=== PATIENT | female | born 2000 | race African-American/Black ===

== ENCOUNTER 2024-09-15 17:42 | Emergency (ER) | payer OTHER, SELFPAY ==
[2024-09-15 17:51] VITALS: BP 130/89
[2024-09-15 18:21] LABS: % Basophils 1.7 % (0-2); % Eosinophils 1.6 % (0-6); % Immature Granulocytes 0.3 % (0-0.5); % Lymphocytes 24.5 % (20.5-51.1); % Monocytes 5.6 % (1.7-9.3); % Neutrophils 66.3 % (42.2-75.2); Absolute Basophils 0.2 10^3/uL (0-0.2); Absolute Eosinophils 0.2 10^3/uL (0-0.7); Absolute Lymphocytes 2.7 10^3/uL (1.2-3.4); Absolute Monocytes 0.6 10^3/uL (0.1-0.6); Absolute Neutrophils 7.2 10^3/uL (1.4-6.5); Hemoglobin 10.2 g/dL (12.0-16.0); INR 1.05; Mean Corp Hgb Conc. 31.9 g/dL (33.0-37.0); Mean Corpuscular Hgb 24.6 pg (27.0-31.0); Mean Corpuscular Volume 77.3 fL (81.0-99.0); Nucleated Red Blood Cells % 0 %; Red Blood Cell Count 4.14 10^6/uL (4.20-5.40); Red Cell Dist. Width 13.7 % (11.5-14.5); White Blood Cell Count 10.9 10^3/uL (4.8-10.8)
[2024-09-15 18:22] LABS: APTT 30.1 Sec (23.4-35.0)
[2024-09-15 18:23] LABS: HCG, Serum Qualitative Screen Negative
[2024-09-15 18:27] LABS: ALT (SGPT) 13 U/L (0-35); AST (SGOT) 17 U/L (14-36); Albumin 4.8 g/dl (3.5-5.0); Alkaline Phosphatase 60 U/L (38-126); Blood Urea Nitrogen 19 mg/dl (7-17); Calcium 8.6 mg/dl (8.4-10.2); Carbon Dioxide 24 mmol/L (22-30); Chloride 105 mmol/L (98-107); Glucose 106 mg/dl (70-99); Potassium 3.8 mmol/L (3.5-5.1); Sodium 139 mmol/L (135-145); Total Bilirubin 0.5 mg/dl (0.2-1.3); Total Protein 7.6 g/dl (6.3-8.2); eGFR > 60.00
[2024-09-15 18:37] LABS: Troponin I < 0.012 ng/ml
[2024-09-15 18:50] LABS: Platelet Count 22 10^3/uL (130-400)
[2024-09-15 20:00] VITALS: BP 116/70
[2024-09-15 20:22] VITALS: BP 116/70
[2024-09-15 21:00] VITALS: BP 107/67
--- NOTE | 2024-09-15 21:50 | ED.GENMED ---
History of Present Illness
General
Chief Complaint: Chest Pain
Source: patient
Exam Limitations: none
Time Seen by Provider: 09/15/24 21:17
Nursing documentation reviewed up to this point in time: agreed with
History of Present Illness
History of Present Illness:
24-year-old female presents emergency room due to left-sided chest pain intermittent. She has some pain when she takes a deep breath.
Past History
Past History
ED Past Medical History: Other (ITP, thalassemia)
ED Past Surgical History: None
Social History
Tobacco: Non-smoker
Alcohol: None
Drug: None
Personal:
Living: with family
Review of Systems
Review of Systems
Allergies reviewed?: Yes
All Other Systems: Not applicable
Constitutional: Reports no symptoms
EENT: Reports no symptoms
Respiratory: Reports trouble breathing
Cardiac: Reports chest pain
ABD/GI: Reports no symptoms
: Reports no symptoms
Musculoskeletal: Reports no symptoms
Skin: Reports no symptoms
Neurological: Reports no symptoms
Endocrine: Reports no symptoms
Hematologic/Lymphatic: Reports no symptoms
Psychiatric: Reports no symptoms
Phy Exam
Physical Exam
Physical Exam:
Physical Exam
General: no apparent distress, not acutely ill
Neck: supple. no meningeal signs. normal posterior pharynx
Heart: s1/s2 regular rate and rhythm, no murmur. equal radial
pulses.
HEENT: Pupils equal round reactive to light, EOMI
Lungs: no acute respiratory distress. clear bilaterally
Abdomen: normal bowel sounds. not tender. no CVAT
Neuro: alert and oriented. no focal neurological deficits cranial nerves II through XII intact
Skin: no rash
Psychiatric: well kept. interactive and cooperative
Extremities: no edema. no calf tenderness. negative homans. good distal pulses
Scores
Heart Score for Chest Pain Patients
STEMI patient?: No
History: Slightly or Non-Suspicious
ECG: Normal
Age: </= 45 years
Risk Factors: No Risk Factors
Troponin: </= Normal Limit
Heart Score for Chest Pain Patients: 0
Heart Score Risk: 2.5% MACE over next 6 weeks
Course
Orders/Labs/Results
Orders:
Orders
09/15/24 17:54
Electrocardiogram (*1) Urgent
Reason for Study: Chest Pain
CONSULT Urgent
09/15/24 17:55
EKG- Treatment ONCE
Test Result ONCE
09/15/24 18:04
Complete Blood Count/With Diff Urgent
Comprehensive Metabolic Panel Urgent
HCG, Serum Qualitative Screen Urgent
Protime/PTT Urgent
Troponin I Urgent
09/15/24 21:41
D-Dimer Urgent
Abnormal Lab Results
09/15/24
18:04
WBC 10.9 H 10^3/uL
(4.8-10.8)
RBC 4.14 L 10^6/uL
(4.20-5.40)
Hgb 10.2 L g/dL
(12.0-16.0)
Hct 32.0 L %
(37.0-47.0)
MCV 77.3 L fL
(81.0-99.0)
MCH 24.6 L pg
(27.0-31.0)
MCHC 31.9 L g/dL
(33.0-37.0)
Plt Count 22 L* 10^3/uL
(130-400)
Absolute Neuts (auto) 7.2 H 10^3/uL
(1.4-6.5)
BUN 19 H mg/dl
(7-17)
Glucose 106 H mg/dl
(70-99)
09/15/24 18:04
09/15/24 18:04
Vital Signs
Initial and Last Documented VS:
Initial Vital Signs
Temp Pulse Resp BP Pulse Ox
98.2 F 101 18 130/89 98
09/15/24 17:51 09/15/24 17:51 09/15/24 17:51 09/15/24 17:51 09/15/24 17:51
Last Documented Vital Signs
Temp Pulse Resp BP Pulse Ox
97.8 F 82 21 105/73 100
09/15/24 20:22 09/15/24 22:52 09/15/24 22:52 09/15/24 22:52 09/15/24 22:52
MDM/Problems Addressed
Differential Diagnosis Includes:
PE, ACS
MDM/Problems Addressed:
24-year-old female with atypical chest pain. Doubt ACS or PE. Stable for discharge. Negative D-dimer and troponin.
*Pulse Oximetry
Patient hypoxic: no
*EKG
Interpreted by ED Provider?: Yes
EKG Intrepretation Date: 09/16/24
EKG Intrepretation Time: 17:58
Interpretation: normal
Comparison EKG: no comparison EKG present
Heart Rate: 91
Rate: normal
Rhythm: sinus
[place]: normal axis
Interval: normal interval
QRS Pattern: normal QRS
Ischemia: no ischemia
*Maintenance Mechanic Interpretation
Rate: normal
Interpretation: normal
Heart Rate: 92
Rhythm: sinus
*Critical Care Note
Total Time (30-74mins, 75-104mins- exclusive of procedures): Not Applicable
Data Reviewed
Further Testing Considered But Not Given:
ct chest not indicated
ED Attending Note
-
Portions of this chart may have been created with voice recognition software.� Occasional wrong word or��sound alike� substitutions may have occurred due to the inherent limitations of voice recognition software.
Discharge Plan
Departure
Patient Disposition: Home (Routine Discharge)
Date of Disposition: 09/15/24
Time of Disposition: 22:40
Patient with high blood pressure during this ER visit?: No
Condition: Good
Discharge Problem:
Chest pain, Thrombocytopenia
Instructions: Immune thrombocytopenia (ITP), Chest Pain PCP Follow Up
Referrals:
NONE,* [Family Provider] -
Activity Restrictions/Additional Instructions:
Return for any concerns. Follow up with primary care and hematology.
Interventions
Interventions:
*Risk Screen - Suicide Last Done: 09/15/24 17:51
*General Assessment Last Done: 09/15/24 17:51
*Neglect/Abuse Screening Last Done: 09/15/24 17:51
ED- Fall Risk Assessment Last Done: 09/15/24 22:55
*ED COVID-19 Vaccine History Last Done: 09/15/24 17:51
*Nursing Disposition Last Done: 09/15/24 22:55
ED- Cardiac Assessment Last Done: 09/15/24 20:37
Discharge Date and Time
Discharge Date/Time: 09/15/24 22:55
Print Language: [id number]
[2024-09-15 22:09] LABS: D-Dimer < 0.27 ug/mlFEU (0.00-0.50)
[2024-09-15 22:52] VITALS: BP 105/73
== END 2024-09-15 22:55 | disposition home or self-care (01) ==
LOC: EMR 17:42
PROVIDERS: Emergency Medicine; EMERGENCY PHYSICIAN Emergency Medicine
DX: R07.89 Other chest pain (principal); D69.6 Thrombocytopenia, unspecified
CPT/HCPCS: 99284; 80053; 84484; 84703; 85025; 85379; 85610; 85730; 93005